=== PATIENT | male | born 1980 | race Caucasian/White ===

== ENCOUNTER → 2017-03-03 | Outpatient (CLI) | payer OTHER ==
[~2017-03-03] MED LIST: None per pt; OXYC-302 PO
[2017-03-03 13:26] LABS: PATH.CAST-FLAG NOT PRESENT; SPERM-FLAG NOT PRESENT; SRC-FLAG NOT PRESENT; XTAL-FLAG NOT PRESENT; YLC-FLAG NOT PRESENT
== END | disposition home or self-care (01) ==
LOC: STAR 12:35
PROVIDERS: ATTEND Surgery
DX: Z01.818 Encounter for other preprocedural examination (principal)
CPT/HCPCS: 81001; 87086

== ENCOUNTER 2017-03-07 14:07 | Day surgery (SDC) | payer OTHER ==
[~2017-03-07] VITALS: Ht 175.3 cm; Wt 82.5 kg
[~2017-03-07 14:07] MED LIST changes: -OXYC-302 PO
[2017-03-07] MEDS ORDERED: LACTATED RINGERS 1,000 ML IV SCH (14:44)
[2017-03-07] MEDS ORDERED: LIDOCAINE 1%, 2ML SQ PRN (15:00)
[2017-03-07] MEDS ORDERED: BUPIVACAINE/PF-EPI 0.5% 1:200K ONE (16:48)
[2017-03-07] MEDS ORDERED: BUPIVACAINE/PF 0.25% ONE (16:48)
[2017-03-07] MEDS ORDERED: MIDAZOLAM 1 MG/ML, 2ML ONE ×2 (16:58→17:23)
[2017-03-07] MEDS ORDERED: FENTANYL PF 250 MCG/5ML ONE (16:58)
[2017-03-07] MEDS ORDERED: GLYCOPYRROLATE 0.2MG/1ML ONE (17:29)
[2017-03-07] MEDS ORDERED: PROPOFOL 10 MG/ML, 20ML ONE (17:29)
[2017-03-07] MEDS ORDERED: NEOSTIGMINE 1 MG/ML, 10ML ONE (17:29)
[2017-03-07] MEDS ORDERED: CEFAZOLIN 1,000 MG ONE (17:29)
[2017-03-07] MEDS ORDERED: ROCURONIUM 10 MG/ML ONE (17:29)
[2017-03-07] MEDS ORDERED: DEXAMETHASONE 4 MG/ML, 1ML ONE (17:29)
[2017-03-07] MEDS ORDERED: KETOROLAC 30 MG/1 ML ONE (17:29)
[2017-03-07] MEDS ORDERED: ONDANSETRON 2MG/ML, 2ML ONE ×2 (17:29)
[2017-03-07] MEDS ORDERED: BUPIVACAINE/PF-EPI 0.5% 1:200K INFIL ONE (17:50)
[2017-03-07] MEDS ORDERED: FENTANYL PF 100 MCG/2ML ONE ×3 (18:26→19:39)
[2017-03-07] MEDS ORDERED: METOCLOPRAMIDE 5 MG/ML, 2ML IV PRN (18:30)
[2017-03-07] MEDS ORDERED: LABETALOL 5MG/ML, 20ML IV PRN (18:30)
[2017-03-07] MEDS ORDERED: ACETAMINOPHEN 325 MG TABLET PO PRN (18:30)
[2017-03-07] MEDS ORDERED: hydrALAzine 20 MG/ML, 1ML IV PRN (18:30)
[2017-03-07] MEDS ORDERED: MEPERIDINE/PF 25MG/0.5ML IVPush PRN (18:30)
[2017-03-07] MEDS ORDERED: OXYcodone 5 MG/5 ML ORAL.SOL UDC PO PRN (18:30)
[2017-03-07] MEDS ORDERED: MIDAZOLAM 1 MG/ML, 2ML IV PRN (18:30)
[2017-03-07] MEDS ORDERED: ALBUTEROL/IPRATROPIUM 2.5MG/0.5MG, 3 ML NPPB PRN (18:30)
[2017-03-07] MEDS ORDERED: PROMETHAZINE 25 MG/ML, 1ML IV PRN (18:30)
[2017-03-07] MEDS ORDERED: ONDANSETRON 2MG/ML, 2ML IVPush PRN ×2 (18:30→21:30)
[2017-03-07] MEDS ORDERED: ACETAMINOPHEN 650 MG/20.3 ML UDC ONE (19:00)
[2017-03-07] MEDS ORDERED: HYDROmorphone 2 MG/ML, 1ML ONE ×2 (19:00→19:39)
[2017-03-07] MEDS: FENTANYL PF 100 MCG/2ML IV PRN ×3 (19:00→19:42)
[2017-03-07] MEDS ORDERED: OXYcodone 5 MG/5 ML ORAL.SOL UDC ONE (19:01)
[2017-03-07] MEDS: HYDROmorphone 1 MG/ML, 1ML IV PRN ×5 (19:10→19:50)
[2017-03-07] MEDS ORDERED: OXYcodone/APAP 5/325MG TABLET PO PRN (21:30)
[2017-03-07] MEDS ORDERED: HYDROmorphone 2 MG/ML, 1ML IV PRN (21:30)
[2017-03-07] MEDS ORDERED: DIPHENHYDRAMINE 50 MG/ML, 1ML IVPush PRN (21:30)
[2017-03-07] MEDS ORDERED: OXYC-302 PO (21:47)
== END 2017-03-07 23:55 | disposition home or self-care (01) ==
LOC: OR 14:07 → 4NOR 20:23 → OR 23:55
PROVIDERS: ATTEND Urology
DX: K40.90 Unilateral inguinal hernia, without obstruction or gangrene, not specified as recurrent (principal); Z30.2 Encounter for sterilization; Z72.89 Other problems related to lifestyle; Z82.49 Family history of ischemic heart disease and other diseases of the circulatory system; Z80.1 Family history of malignant neoplasm of trachea, bronchus and lung; Z87.891 Personal history of nicotine dependence
CPT/HCPCS: 49650; 55250; C1727; C1781; J0690; J1100; J1170; J1885; J2250; J2405; J2704; J2710; J3010; J3490; J7120